=== PATIENT | male | born 1965 | race Hispanic/Latino ===

== ENCOUNTER 2022-12-07 09:29 | Emergency (ER) | payer SELFPAY ==
[2022-12-07 09:57] LABS: Absolute Lymphocytes (CBC) 3.5 K/uL (0.7-4.9); Hematocrit 42.5 % (39.6-49.0); Lymphocytes % 39.1 % (15.3-44.8); MCV 89.6 fL (80-100); MPV 9.7 fL (7.6-11.3); RBC Red Blood Cell Count 4.75 M/uL (4.33-5.43)
[2022-12-07 10:01] LABS: Protime INR 1.04
--- NOTE | 2022-12-07 10:06 | ER ---
Nurse's Notes [facility] Name: George Cevallos Age: 57 yrs Sex: Male : 1965 Arrival Date: 12/07/2022 Time: 09:29 Bed 3 Private MD: Diagnosis: Fall (on) (from) other stairs and steps-14 FOOT;Unspecified injury of head, initial encounter;Concussion with loss of consciousness of 30 minutes or less;Laceration without foreign body of left hand, initial encounter-COMPLEX, DEGLOVING INJURY, TENDON INVOLVMENT;Laceration without foreign body of right elbow, initial encounter-COMPLEX Presentation: 12/07 09:34 Chief complaint: Friend and/or Co-Worker states: FALL FROM SCAFFOLDING AT WORK, bp INJURIES NOTED TO OCCIPITAL, LEFT HAND AND LEFT ELBOW. Coronavirus screen: At this time, the client does not indicate any symptoms associated with coronavirus-19. Ebola Screen: No symptoms or risks identified at this time. Initial Sepsis Screen: Does the patient meet any 2 criteria? No. Patient's initial sepsis screen is negative. Does the patient have a suspected source of infection? No. Patient's initial sepsis screen is negative. Risk Assessment: Do you want to hurt yourself or someone else? Patient reports no desire to harm self or others. Onset of symptoms was December 07, 2022 at 09:00. 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 ll1 Patient doesn't remember event. Major head injury with bleeding. L hand lacerations across 4 fingers, limited ROM of digits. Bleeding controlled with pressure dressings. Coronavirus screen: Client denies travel out of the [place] in the last 14 days. At this time, the client does not indicate any symptoms associated with coronavirus-19. Ebola Screen: Patient denies travel to an Ebola-affected area in the 21 days before illness onset. Initial Sepsis Screen: Does the patient meet any 2 criteria? No. Patient's initial sepsis screen is negative. Does the patient have a suspected source of infection? Yes: Skin breakdown/wound Bone or joint infection. Risk Assessment: Do you want to hurt yourself or someone else? Patient reports no desire to harm self or others. Onset of symptoms was December 07, 2022. 09:34 Method Of Arrival: Wheelchair ll1 09:34 Acuity: JACOB 1 ll1 Triage Assessment: 09:36 General: Appears distressed, Behavior is calm, CONFUSED. Pain: Unable to use pain bp scale. Patient is disoriented. EENT: No deficits noted. Neuro: Level of Consciousness is awake, obeys commands, confused, Oriented to person. Cardiovascular: No deficits noted. Respiratory: No deficits noted. GI: No signs and/or symptoms were reported involving the gastrointestinal system. : No deficits noted. Derm: No deficits noted. Musculoskeletal: No deficits noted. Injury Description: OPEN IRREGULAR LACERATION TO LEFT PALMAR SURFACE, LEFT ELBOW, LEFT OCCIPITAL. 09:37 General: Appears uncomfortable, Behavior is calm, cooperative, confused. Reports not ll1 knowing what happened. Pain: Complains of pain in head. Neuro: Reports dizziness, headache head injury with confusion. Derm: Laceration L scalp. Lacerations across L hand. R elbow laceration. Abrasions L shoulder. Injury Description: Avulsion Head injury. Historical: - Allergies: 09:36 No Known Allergies; bp - Home Meds: 09:36 Unable to obtain [Active]; bp - PMHx: 09:36 Unable to Obtain; bp - Immunization history:: Adult Immunizations unknown. - Social history:: Smoking status: Patient denies any tobacco usage or history of. - Family history:: not pertinent. Screenin:44 [facility] ED Fall Risk Assessment (Adult) History of falling in the last 3 months, ph including since admission Yes- single mechanical fall (1 pt) Confusion or Disorientation Yes (5 pts) Intoxicated or Sedated No (0 pts) Impaired Gait No (0 pts) Mobility Assist Device Used No (0 pt) Altered Elimination No (0 pt) Score/Fall Risk Level 0 - 2 = Low Risk Oriented to surroundings, Maintained a safe environment, Hourly rounding (assess needs \T\ fall precautionary measures) done. Abuse screen: Denies threats or abuse. Denies injuries from another. Nutritional screening: No deficits noted. Tuberculosis screening: No symptoms or risk factors identified. Assessment: 09:45 Reassessment: Pt taken to CT. ph 10:35 Reassessment: Patient appears in no apparent distress at this time. Patient and/or ph family updated on plan of care and expected duration. Pain level reassessed. Pt awake and alert, oriented x 3 but still does not recall events r/t fall and injury. Report called to [facility], transfer form signed by pt's son, [facility] at bedside for transfer, VSS at this time, GCS 14. Vital Signs: 10:01 BP 159 / 78; Pulse 87; Resp 18; Weight 81.65 kg; Height 5 ft. 8 in. ; ph 10:05 BP 160 / 74; Pulse 90; Resp 17; Temp 97.8; Pulse Ox 98% on R/A; rs5 10:38 BP 127 / 75; Pulse 91; Resp 18; Temp 97.5; Pulse Ox 96% on R/A; ph 10:01 Body Mass Index 27.37 (81.65 kg, 172.72 cm) ph Kai Coma Score: 09:44 Eye Response: spontaneous(4). Motor Response: obeys commands(6). Verbal Response: jillian oriented(5). Total: 15. 09:53 Eye Response: spontaneous(4). Motor Response: obeys commands(6). Verbal Response: jillian oriented(5). Total: 15. 10:01 Eye Response: spontaneous(4). Motor Response: obeys commands(6). Verbal Response: ph confused(4). Total: 14. 10:38 Eye Response: spontaneous(4). Motor Response: obeys commands(6). Verbal Response: ph confused(4). Total: 14. Trauma Score (Adult): 09:44 Eye Response: spontaneous(1); Verbal Response: oriented(1); Motor Response: obeys jillian commands(2); Systolic BP: > 89 mm Hg(4); Respiratory Rate: 10 to 29 per min(4); Winslow Score: 15; Trauma Score: 12 10:01 Eye Response: spontaneous(1); Verbal Response: confused(1); Motor Response: obeys ph commands(2); Systolic BP: > 89 mm Hg(4); Respiratory Rate: 10 to 29 per min(4); Winslow Score: 14; Trauma Score: 12 10:38 Eye Response: spontaneous(1); Verbal Response: confused(1); Motor Response: obeys ph commands(2); Systolic BP: > 89 mm Hg(4); Respiratory Rate: 10 to 29 per min(4); Winslow Score: 14; Trauma Score: 12 ED Course: 09:30 Patient arrived in ED. jillian 09:34 Kenneth Foy, CHICA is Primary Nurse. bp 09:34 Akbar Ledezma MD is Attending Physician. jillian 09:34 Arm band placed on Patient placed in an exam room, on a stretcher. ll1 09:35 Triage completed. bp 09:44 Inserted saline lock: 20 gauge in left antecubital area, using aseptic technique. Blood ph collected. Inserted saline lock: 20 gauge in right hand, using aseptic technique. Missed attempt(s): 18 gauge in left antecubital area. Bleeding controlled, band aid applied, catheter tip intact. 09:53 CT Traumagram (Head C Spine CAP W Con) In Process Unspecified. EDMS 10:10 Hand Left 3 View XRAY In Process Unspecified. EDMS 10:10 Elbow Right 3 View XRAY In Process Unspecified. EDMS 10:38 No provider procedures requiring assistance completed. Patient transferred, IV remains ph in place. 10:39 Patient has correct armband on for positive identification. Placed in gown. Bed in low ph position. Call light in reach. Client placed on continuous cardiac and pulse oximetry monitoring. NIBP monitoring applied. Administered Medications: 10:18 Drug: Tetanus Toxoid,Adsorbed IM 0.5 ml {Associate Professor Of Library Science: Udex. Exp: 12/30/2022. bp Lot #: [id number]. } Route: IM; Site: left deltoid; 10:35 Follow up: Response: No adverse reaction bp 10:19 Drug: NS 0.9% IV 1000 ml Route: IV; Rate: 1 bolus; Site: left antecubital; bp 10:35 Follow up: IV Status: Completed infusion; IV Intake: 1000ml bp 10:19 Drug: ceFAZolin IVPB 2 grams Route: IVPB; Infused Over: 30 mins; Site: left antecubital;bp 10:35 Follow up: IV Status: Completed infusion; IV Intake: 100ml bp 10:35 Drug: fentaNYL (PF) IVP 50 mcg Route: IVP; Site: right antecubital; bp 10:35 Follow up: Response: No adverse reaction bp 10:35 Drug: Ondansetron IVP 4 mg Route: IVP; Site: right antecubital; bp 10:35 Follow up: Response: No adverse reaction bp Medication: 10:39 Vaccine Information Statement (VIS) provided today. Questions and/or concerns ph addressed. VIS edition date: February 25, 2021. Intake: 10:35 IV: 1000ml; Total: 1000ml. bp 10:35 IV: 100ml; Total: 1100ml. bp Outcome: 10:05 ER care complete, transfer ordered by . jillian 10:40 Transferred by ground [facility]. to [facility], Transfer form ph completed. X-rays sent w/ patient. 10:40 Condition: stable 10:40 Instructed on the need for transfer. 10:51 Patient left the ED. ph Signatures: Dispatcher [employer] EDMS Akbar Ledezma MD MD cha Hall, Patricia, RN RN Kenneth Key RN RN bp Lewis, Lynsay, RN RN ll1 [place] rs5
--- NOTE | 2022-12-07 10:06 | EDPHYS ---
Physician Documentation [facility] Name: George Cevallos Age: 57 yrs Sex: Male : 1965 Arrival Date: 12/07/2022 Time: 09:29 Bed 3 Private MD: ED Physician Akbar Ledezma HPI: 12/07 09:44 This 57 yrs old Male presents to ER via Wheelchair with complaints of fall 14 jillian foot, loc. 09:44 The patient or guardian reports a laceration, 5 cm(s), complex, irregular, swelling, jillian tenderness. The complaints affect the left side of the back of head. Context of injury: The problem was sustained at work. Onset: The symptoms/episode began/occurred just prior to arrival. Associated signs and symptoms: Loss of consciousness: This patient experience a loss of consciousness, Pertinent positives: injury. Trauma demographics: County: The injury occurred in [place]. Mechanism of injury: Fall: the patient fell from a ladder from a roof. Associated injuries: The patient sustained injury to the head, contusion, deformity, laceration, pain, decreased range of motion, laceration, 5 cm(s), painful injury, swelling, left hand, decreased range of motion, laceration, 6.5 cm(s), painful injury, swelling, right elbow, decreased range of motion, laceration, painful injury, swelling. 10:00 The patient or guardian complains of injury, a laceration, 5 cm(s), complex. Treatment jillian prior to arrival includes: no previous treatment. Modifying factors: The symptoms are alleviated by remaining still, the symptoms are aggravated by movement, bending arm. The patient or guardian reports decreased range of motion, deformity, injury, pain, swelling, tenderness. The complaints affect the left hand diffusely. Severity of symptoms: At their worst the symptoms were moderate, in the emergency department the symptoms are unchanged. Historical: - Allergies: 09:36 No Known Allergies; bp - Home Meds: 09:36 Unable to obtain [Active]; bp - PMHx: 09:36 Unable to Obtain; bp - Immunization history:: Adult Immunizations unknown. - Social history:: Smoking status: Patient denies any tobacco usage or history of. - Family history:: not pertinent. ROS: 09:44 Eyes: Negative for injury, pain, redness, and discharge, ENT: Negative for injury, jillian pain, and discharge, Neck: Negative for injury, pain, and swelling, Cardiovascular: Negative for chest pain, palpitations, and edema, Respiratory: Negative for shortness of breath, cough, wheezing, and pleuritic chest pain, Abdomen/GI: Negative for abdominal pain, nausea, vomiting, diarrhea, and constipation, Back: Negative for injury and pain, : Negative for injury, bleeding, discharge, and swelling. 09:44 Constitutional: Positive for malaise. 09:44 Skin: Positive for laceration(s), of the scalp, left hand and right arm. Exam: 09:44 Constitutional: This is a well developed, well nourished patient who is awake, alert, jillian and in no acute distress. Eyes: Pupils equal round and reactive to light, extra-ocular motions intact. Lids and lashes normal. Conjunctiva and sclera are non-icteric and not injected. Cornea within normal limits. Periorbital areas with no swelling, redness, or edema. ENT: Nares patent. No nasal discharge, no septal abnormalities noted. Tympanic membranes are normal and external auditory canals are clear. Oropharynx with no redness, swelling, or masses, exudates, or evidence of obstruction, uvula midline. Mucous membranes moist. Neck: Trachea midline, no thyromegaly or masses palpated, and no cervical lymphadenopathy. Supple, full range of motion without nuchal rigidity, or vertebral point tenderness. No Meningismus. Chest/axilla: Normal chest wall appearance and motion. Nontender with no deformity. No lesions are appreciated. Cardiovascular: Regular rate and rhythm with a normal S1 and S2. No gallops, murmurs, or rubs. Normal PMI, no JVD. No pulse deficits. Respiratory: Lungs have equal breath sounds bilaterally, clear to auscultation and percussion. No rales, rhonchi or wheezes noted. No increased work of breathing, no retractions or nasal flaring. Abdomen/GI: Soft, non-tender, with normal bowel sounds. No distension or tympany. No guarding or rebound. No evidence of tenderness throughout. Male : Normal genitalia with no discharge or lesions. Neuro: Awake and alert, GCS 15, oriented to person, place, time, and situation. Cranial nerves II-XII grossly intact. Motor strength 5/5 in all extremities. Sensory grossly intact. Cerebellar exam normal. Normal gait. Psych: Awake, alert, with orientation to person, place and time. Behavior, mood, and affect are within normal limits. 09:44 Head/face: Noted is a laceration(s), that is deep, that is jagged, 5 cm(s), of the left side of the back of head. 09:44 Neuro: Orientation: is normal, appropriate for stated age, no acute changes, Mentation: is normal, appropriate for stated age, no acute changes, per family, Memory: immediate memory is impaired, remote memory is intact. recent memory is impaired, Gait: unable to assess, seizure activity, is not displayed by the patient. 10:00 Musculoskeletal/extremity: Extremities: noted in the palmar aspect of middle phalanx of jillian left ring finger, palmar aspect of proximal phalanx of left ring finger, palmar aspect of middle phalanx of left middle finger, palmar aspect of proximal phalanx of left middle finger, palmar aspect of middle phalanx of left index finger and palmar aspect of proximal phalanx of left index finger: decreased ROM, laceration, pain, ROM: limited active range of motion due to pain, limited passive range of motion due to pain, Circulation is intact in all extremities. Sensation intact. Compartment Syndrome exam of affected extremity: is normal. Vital Signs: 10:01 BP 159 / 78; Pulse 87; Resp 18; Weight 81.65 kg; Height 5 ft. 8 in. ; ph 10:05 BP 160 / 74; Pulse 90; Resp 17; Temp 97.8; Pulse Ox 98% on R/A; rs5 10:38 BP 127 / 75; Pulse 91; Resp 18; Temp 97.5; Pulse Ox 96% on R/A; ph 10:01 Body Mass Index 27.37 (81.65 kg, 172.72 cm) ph Torrance Coma Score: 09:44 Eye Response: spontaneous(4). Motor Response: obeys commands(6). Verbal Response: jillian oriented(5). Total: 15. 09:53 Eye Response: spontaneous(4). Motor Response: obeys commands(6). Verbal Response: jillian oriented(5). Total: 15. 10:01 Eye Response: spontaneous(4). Motor Response: obeys commands(6). Verbal Response: ph confused(4). Total: 14. 10:38 Eye Response: spontaneous(4). Motor Response: obeys commands(6). Verbal Response: ph confused(4). Total: 14. Trauma Score (Adult): 09:44 Eye Response: spontaneous(1); Verbal Response: oriented(1); Motor Response: obeys jillian commands(2); Systolic BP: > 89 mm Hg(4); Respiratory Rate: 10 to 29 per min(4); Kai Score: 15; Trauma Score: 12 10:01 Eye Response: spontaneous(1); Verbal Response: confused(1); Motor Response: obeys ph commands(2); Systolic BP: > 89 mm Hg(4); Respiratory Rate: 10 to 29 per min(4); Kai Score: 14; Trauma Score: 12 10:38 Eye Response: spontaneous(1); Verbal Response: confused(1); Motor Response: obeys ph commands(2); Systolic BP: > 89 mm Hg(4); Respiratory Rate: 10 to 29 per min(4); Torrance Score: 14; Trauma Score: 12 MDM: 09:30 Patient medically screened. jillian 09:34 Patient medically screened. jillian 09:53 Differential diagnosis: Contusion of Hematoma on Laceration of Intracranial bleed- jillian Concussion intra-abdominal injury, closed head injury, cardiac contusion, extremity fracture, C spine fracture, T spine fracture, L spine fracture, open fracture, contusion, abrasion. Data reviewed: vital signs, nurses notes, lab test result(s), EKG, radiologic studies, CT scan, plain films. Consideration of Admission/Observation Patient was admitted/placed on observation. Escalation of care including admission/observation considered. Management of patient was discussed with the following: Manager Of School: trauma chief. I considered the following discharge prescriptions or medication management in the emergency department Medications were administered in the Emergency Department. See MAR. Independent interpretation of the following test(s) in the Emergency Department CT Scan: My interpretation is CT TRAUMA. Test considered but Not performed: Ultrasound no FAST. Historians other than the Patient: Friend: COWORKER, INFORMED AND PRESENT. Care significantly affected by the following chronic conditions: Hypertension, Obesity. Counseling: I had a detailed discussion with the patient and/or guardian regarding: the historical points, exam findings, and any diagnostic results supporting the discharge/admit diagnosis, lab results, radiology results, the need to transfer to another facility, for higher level of care, [facility] does not immediately have the required specialist. ED course: STABLE AND TRANSFERRED. 12/07 09:34 Order name: Basic Metabolic Panel; Complete Time: 10:31 [facility] 12/07 09:34 Order name: CBC with Diff; Complete Time: 10:31 [facility] 12/07 09:34 Order name: Type And Screen 12/07 09:34 Order name: LFT's; Complete Time: 10:31 [facility] 12/07 09:34 Order name: PT-INR; Complete Time: 10: [facility] 12/07 09:34 Order name: CT Traumagram (Head C Spine CAP W Con); Complete Time: 10: [facility] 12/07 09:34 Order name: Hand Left 3 View XRAY; Complete Time: 10:31 [facility] 12/07 09:35 Order name: Elbow Right 3 View XRAY; Complete Time: 10:31 [facility] 12/07 09:34 Order name: Labs collected and sent; Complete Time: 09:45 [facility] 12/07 09:34 Order name: Wound dressing; Complete Time: 09:45 [facility] 12/07 09:35 Order name: NPO; Complete Time: 09:45 [facility] 12/07 09:37 Order name: IV Saline Lock - Large Bore; Complete Time: 09:45 [facility] Administered Medications: 10:18 Drug: Tetanus Toxoid,Adsorbed IM 0.5 ml {Slurry Worker: Mixgar. Exp: 12/30/2022. bp Lot #: [id number]. } Route: IM; Site: left deltoid; 10:35 Follow up: Response: No adverse reaction bp 10:19 Drug: NS 0.9% IV 1000 ml Route: IV; Rate: 1 bolus; Site: left antecubital; bp 10:35 Follow up: IV Status: Completed infusion; IV Intake: 1000ml bp 10:19 Drug: ceFAZolin IVPB 2 grams Route: IVPB; Infused Over: 30 mins; Site: left antecubital;bp 10:35 Follow up: IV Status: Completed infusion; IV Intake: 100ml bp 10:35 Drug: fentaNYL (PF) IVP 50 mcg Route: IVP; Site: right antecubital; bp 10:35 Follow up: Response: No adverse reaction bp 10:35 Drug: Ondansetron IVP 4 mg Route: IVP; Site: right antecubital; bp 10:35 Follow up: Response: No adverse reaction bp Disposition Summary: 12/07/22 10:05 Transfer Ordered Transfer Location: [facility] jillian Reason: Higher level of care jillian Condition: Fair jillian Problem: new jillian Symptoms: are unchanged jillian Accepting Physician: TO DR OCHOA(12/07/22 10:51) ph Diagnosis - Fall (on) (from) other stairs and steps - 14 FOOT jillian - Unspecified injury of head, initial encounter jillian - Concussion with loss of consciousness of 30 minutes or less jillian - Laceration without foreign body of left hand, initial encounter - COMPLEX, jillian DEGLOVING INJURY, TENDON INVOLVMENT - Laceration without foreign body of right elbow, initial encounter - COMPLEX jillian Discharge Instructions: - Discharge Summary Sheet ph Forms: - Medication Reconciliation Form jillian - SBAR form ph Signatures: Dispatcher [employer] EDMS Akbar Ledezma MD MD cha Hall, Patricia RN RN ph Kenneth Foy RN RN bp Corrections: (The following items were deleted from the chart) 09:46 09:35 Chest Single View+RAD.RAD.BRZ ordered. EDMS EDMS 09:46 09:35 Pelvis+RAD.RAD.BRZ ordered. EDMS EDMS 10:51 10:[address] DON walsh ph
--- NOTE | 2022-12-07 10:09 | RAD REPORT ---
EXAM DESCRIPTION: CT - Head C Spine Parvez Perry - 12/07/2022 9:52 am CLINICAL HISTORY: Head and neck injury with chest and abdominal pain status post fall. Head and neck pain . TECHNIQUE: Computed axial tomography of the head and cervical spine was obtained Computed axial tomography of the chest, abdomen and pelvis was obtained. 100 cc Isovue-300 was given intravenously coronal and sagittal reconstruction was performed. All CT scans are performed using dose optimization technique as appropriate and may include automated exposure control or mA/KV adjustment according to patient size. COMPARISON: None FINDINGS: Left posterior scalp hematoma An intracranial bleed is not seen. The ventricles are normal in caliber. An extra-axial fluid collect ion is not noted. Fluid within the sinuses is not seen A cervical fracture is not seen. No dislocation is seen. A mediastinal hematoma is not noted. A pleural effusion is not present. A lung contusion is not seen. The liver, spleen, pancreas, adrenals, kidneys and bladder do not demonstrate an acute traumatic inju ry Mild contusion subcutaneous tissues left flank IMPRESSION: No acute intracranial abnormality is seen A cervical fracture is not visualized. If the patient continues have symptoms to suggest intracranial /spinal cord pathology then MRI would be recommended. Mild contusions subcutaneous tissues left flank
--- NOTE | 2022-12-07 10:16 | RAD REPORT ---
EXAM DESCRIPTION: RAD - Elbow Right 3 View - 12/07/2022 10:08 am CLINICAL HISTORY: Right elbow pain status post injury FINDINGS: A vertical bony/calcific density abutting the medial humeral epicondyle most likely is chr onic and should be confirmed clinically. Otherwise no fracture or dislocation
[2022-12-07 10:18] LABS: Albumin 4.3 g/dL (3.4-5.0); Bilirubin Direct 0.2 mg/dL (0-0.2); Bilirubin Indirect, Calculated 0.6 mg/dL (0.2-0.8); Bilirubin Total 0.8 mg/dL (0.2-1.0); Potassium 3.6 mEq/L (3.5-5.1); Protein, Total 8.4 g/dL (6.4-8.2)
[2022-12-07] MEDS ORDERED: NA CHLORIDE 0.9% 1,000 ML ONE (10:20)
[2022-12-07] MEDS ORDERED: TETANUS & DIPHTHERIA TOX,ADULT 0.5 ML VIAL ONE (10:20)
[2022-12-07] MEDS ORDERED: CEFAZOLIN SODIUM 1 GM/VIAL ONE (10:20)
--- NOTE | 2022-12-07 10:29 | RAD REPORT ---
EXAM DESCRIPTION: RAD -Hand Left 3 View - 12/07/2022 10:08 am CLINICAL HISTORY: Left hand pain status post injury FINDINGS: A bandage overlies the and obscuring bony detail No gross fracture or dislocation
[2022-12-07] MEDS ORDERED: FENTANYL CITR 100 MCG/2 ML ONE (10:38)
[2022-12-07] MEDS ORDERED: ONDANSETRON 4 MG/2 ML VIAL ONE (10:39)
[2022-12-07 11:01] VITALS: BP 127/75; TEMP 97.5; O2SAT 96
== END 2022-12-07 10:51 | disposition short-term general hospital (02) ==
LOC: ER 09:29 → EDBD 09:29 → ER 10:51
DX: S06.0X1A Concussion with loss of consciousness of 30 minutes or less, initial encounter (principal); S01.01XA Laceration without foreign body of scalp, initial encounter; S61.412A Laceration without foreign body of left hand, initial encounter; S51.011A Laceration without foreign body of right elbow, initial encounter; W10.9XXA Fall (on) (from) unspecified stairs and steps, initial encounter; Z23 Encounter for immunization
CPT/HCPCS: 36415; 70450; 71260; 72125; 74177; 80048; 80076; 85025; 85610; 86850; 86900; 86901; 90471; 90714; 96365; 96375; 99291; J0690; J2405; J3010; J7030; Q9967